=== PATIENT | male | born 1965 | race Caucasian/White ===

== ENCOUNTER 2022-10-31 06:58 | Emergency (ER) | payer BC ==
--- NOTE | 2022-10-31 07:34 | ED Physician Documentation ---
PD HPI ABD PAIN - Stated complaint Stated Complaint: SOA,LT SIDE PX - Chief complaint Chief Complaint: Abd Pain - History obtained from History obtained from: Patient, Family - History of Present Illness Timing - onset: Enter time (429), Today Timing - duration: Hours Timing - details: Abrupt onset, Still present, Waxing and waning Quality: Sharp, Pain Location: LUQ Radiation: Left flank Improved by: Laying still Worsened by: Moving, Breathing. No: Palpation Associated symptoms: No: Fever, Nausea, Vomiting, Hematemesis, Diarrhea, Constipation, Melena, Hematochezia, Dysuria, Hematuria, Chest pain, Dizzy, Near syncope / syncope, Loss of appetite, Weight loss Similar symptoms before: Has not had sx before Recently seen: Admitted - Additional information Additional information: 57-year-old Miguel Estrada has recently developed medical problems. He developed GI bleeding with anemia requiring transfusion and at that time had atrial fibrillation with rapid ventricular response resulting in damage to his heart. This all occurred in May of this year resulting in a 4-day hospitalization at [facility]. He has since been back to home and back to work he is on metoprolol and amiodarone as well as a medication for his stomach. This morning Miguel was in the bed when he developed a sharp left flank pain radiating across his abdomen. He states that at that time it was difficult to get a breath. The pain eventually improved somewhat. He subsequently had return of his pain with breathing and with movement. He can get his pain down to a 3-4 level if he is sitting upright and breathing shallow. He denies any vomiting denies any nausea denies any diarrhea denies blood per rectum does st ate that he is on iron and has dark stool. He has not taken his medications this morning. Review of Systems Constitutional: denies: Fever Eyes: denies: Decreased vision Nose: denies: Congestion Throat: denies: Sore throat Cardiac: denies: Chest pain / pressure, Palpitations, Pedal edema, Calf pain Respiratory: reports: Dyspnea. denies: Cough, Wheezing GI: reports: Abdominal Pain. denies: Abdominal Swelling, Nausea, Vomiting, Constipation, Diarrhea, Hematemesis : denies: Dysuria, Frequency Skin: denies: Rash Musculoskeletal: denies: Neck pain, Back pain, Extremity pain Neurologic: denies: Generalized weakness, Focal weakness, Numbness PD PAST MEDICAL HISTORY - Present Medications Home Medications: Ambulatory Orders Medication Instructions Recorded Confirmed Amox/Clav 875/125 [Augmentin] 1 each PO Q12H #20 tablet 10/31/22 HYDROcod/ACETAM 5/325 [Frontier 5/325] 1 - 2 tablet PO Q6H PRN #14 tablet 10/31/22 - Allergies Allergies/Adverse Reactions: Allergies Allergy/AdvReac Type Severity Reaction Status Date / Time No Known Drug Allergies Allergy Verified 10/31/22 07:12 - Social History Does the pt smoke?: No Smoking Status: Never smoker PD ED PE NORMAL - Vitals Vital signs reviewed: Yes (Tachycardic and hypertensive) - General General: Alert and oriented X 3, No acute distress, Well developed/nourished - HEENT HEENT: Atraumatic, PERRL, EOMI - Neck Neck: Supple, no meningeal sign, No bony TTP - Cardiac Cardiac: Other (tachy and irregularly irregular) - Respiratory Respiratory: No respiratory distress, Other (clear with shallow breaths only) - Abdomen Abdomen: Normal bowel sounds, Soft, Non tender, Non distended, No organomegaly - Back Back: No CVA TTP, No spinal TTP - Derm Derm: Normal color, Warm and dry, No rash - Extremities Extremities: No deformity, No edema - Neuro Neuro: Alert and oriented X 3, 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 Relevant findings are: Rate: Rate (enter#) (108) Rhythm: Atrial flutter [place]: LAD Intervals: Prolonged QT QRS: Poor R wave progression Ischemia: T wave inversion (inferior) Compare to prior EKG: Old EKG unavailable Computer interpretation: Agree with computer - Labs Labs: Laboratory Tests 10/31/22 10/31/22 10/31/22 07:39 07:39 07:39 WBC 14.2 H RBC 4.57 L Hgb 10.2 L Hct 36.1 L MCV 79.0 L MCH 22.3 L MCHC 28.3 L RDW 18.9 H Plt Count 336 MPV 10.2 Neut # (Auto) 12.1 H Lymph # (Auto) 0.9 L Victoria # (Auto) 1.1 H Eos # (Auto) 0.0 Baso # (Auto) 0.1 Absolute Nucleated RBC 0.00 Nucleated RBC % 0.0 PT 12.5 INR 1.1 Sodium 138 Potassium 4.5 Chloride 105 Carbon Dioxide 27 Anion Gap 6.0 BUN 15 Creatinine 1.2 Estimated GFR (MDRD) 62 L Glucose 110 H Calcium 9.2 Total Bilirubin 0.5 AST 10 ALT 10 Alkaline Phosphatase 70 Troponin I High Sens Total Protein 7.7 Albumin 3.9 Globulin 3.8 Albumin/Globulin Ratio 1.0 Lipase 20 Urine Color Urine Clarity Urine pH Ur Specific [place] Urine Protein Urine Glucose (UA) Urine Ketones Urine Occult Blood Urine Nitrite Urine Bilirubin Urine Urobilinogen Ur Leukocyte Esterase Urine RBC Urine WBC Ur Squamous Epith Cells Urine Bacteria Ur Microscopic Review Urine Culture Comments Nasal Adenovirus (PCR) Nasal B. parapertussis DNA (PCR) Nasal Coronavir 229E PCR Nasal Coronavir HKU1 PCR Nasal Coronavir NL63 PCR Nasal Coronavir OC43 PCR Nasal Enterovir/Rhinovir PCR Nasal Influenza B PCR Nasal Influenza A PCR Nasal Parainfluen 1 PCR Nasal Parainfluen 2 PCR Nasal Parainfluen 3 PCR Nasal Parainfluen 4 PCR Nasal RSV (PCR) Nasal B.pertussis DNA PCR Nasal C.pneumoniae (PCR) Leonardo Human Metapneumo PCR Nasal M.pneumoniae (PCR) Nasal SARS-CoV-2 (PCR) 10/31/22 10/31/22 10/31/22 07:39 07:52 08:45 WBC RBC Hgb Hct MCV MCH MCHC RDW Plt Count MPV Neut # (Auto) Lymph # (Auto) Victoria # (Auto) Eos # (Auto) Baso # (Auto) Absolute Nucleated RBC Nucleated RBC % PT INR Sodium Potassium Chloride Carbon Dioxide Anion Gap BUN Creatinine Estimated GFR (MDRD) Glucose Calcium Total Bilirubin AST ALT Alkaline Phosphatase Troponin I High Sens 3.5 Total Protein Albumin Globulin Albumin/Globulin Ratio Lipase Urine Color YELLOW Urine Clarity CLEAR Urine pH 5.5 Ur Specific [place] 1.020 Urine Protein NEGATIVE Urine Glucose (UA) NEGATIVE Urine Ketones NEGATIVE Urine Occult Blood NEGATIVE Urine Nitrite NEGATIVE Urine Bilirubin NEGATIVE Urine Urobilinogen 0.2 (NORMAL) Ur Leukocyte Esterase TRACE H Urine RBC 0-5 Urine WBC 4-5 Ur Squamous Epith Cells FEW Squamous Urine Bacteria Rare Ur Microscopic Review INDICATED Urine Culture Comments INDICATED Nasal Adenovirus (PCR) NOT DETECTED Nasal B. parapertussis DNA (PCR) NOT DETECTED Nasal Coronavir 229E PCR NOT DETECTED Nasal Coronavir HKU1 PCR NOT DETECTED Nasal Coronavir NL63 PCR NOT DETECTED Nasal Coronavir OC43 PCR NOT DETECTED Nasal Enterovir/Rhinovir PCR NOT DETECTED Nasal Influenza B PCR NOT DETECTED Nasal Influenza A PCR NOT DETECTED Nasal Parainfluen 1 PCR NOT DETECTED Nasal Parainfluen 2 PCR NOT DETECTED Nasal Parainfluen 3 PCR NOT DETECTED Nasal Parainfluen 4 PCR NOT DETECTED Nasal RSV (PCR) NOT DETECTED Nasal B.pertussis DNA PCR NOT DETECTED Nasal C.pneumoniae (PCR) NOT DETECTED Leonardo Human Metapneumo PCR NOT DETECTED Nasal M.pneumoniae (PCR) NOT DETECTED Nasal SARS-CoV-2 (PCR) NOT DETECTED Procedures - Bedside sono Bedside sono by EMP: With use of POCUS the left kidney was imaged there is no evidence of hydronephrosis and the kidney is sonographically nontender. I attempted to use POCUS for evaluation of the inferior vena cava significant gas in the abdomen precluded any further imaging. PD Medical Decision Making - ED course Complexity details: reviewed results, re-evaluated patient, considered differential, d/w patient, d/w family Reviewed Lab Results: We reviewed a complete blood count showing an elevated white blood cell count of 14.2 hemoglobin of 10.2 and hematocrit of 36.1 platelets were normal at 336. MCV is low at 79. My interpretation of these results are the patient has some anemia likely due to chronic blood loss with a low MCV and high RDW suggesting recent recovery. This is consistent with the patient's known history of prior GI bleed with requirement of 4 units transfused blood. The patient does not appear to need blood now. His elevated white blood cell count could indicate an infection. Coupled with the picture on the x-ray of a potential infiltrate on the left base correlating with this patient's symptoms of pain on the left side with respiration this be could be consistent with pneumonia. Coagulation parameters were normal. Imaging shows a large hiatal hernia with the entire contents of the stomach in the chest and surrounding inflammation. I became concerned about the possibility of paraesophageal hernia and asked for additional help from our surgeon Dr. Pierce for evaluation of the patient. Departure - Departure Disposition: 01 Home, Self Care Clinical Impression: Pleurisy with effusion Pneumonia Qualifiers: Pneumonia type: due to unspecified organism Laterality: left Lung location: lower lobe of lung Qualified Code(s): J18.9 - Pneumonia, unspecified organism Condition: Stable Instructions: ED Pneumonia Adult, ED Effusion Pleural, ED Chest Pain Pleurisy Follow-Up: MAURI COLBERT DO [Primary Care Provider] - Prescriptions: Amox/Clav 875/125 [Augmentin] 1 each PO Q12H #20 tablet HYDROcod/ACETAM 5/325 [Frontier 5/325] 1 - 2 tablet PO Q6H PRN #14 tablet PRN Reason: Pain Comments: Miguel, today it looks like you have a patch of pneumonia in your left lower lung that is causing some inflammation against your chest wall on the left side. We have given you a dose of dexamethasone today which should help a lot with the pain associated with this. This will last about 2 days. You may need pain medication for control of your symptoms and I have E scribed some pain medication and antibiotic to the [facility] in [place]. Our expectation with treatment is to have improvement in your pain and breathing. We recommend that you talk to Kaity Colbert about a referral for follow-up endoscopy. This should be done to ensure that you have resolution of your ulcer so that we can consider placing you on a blood thinner.
[2022-10-31 07:48] LABS: BASOPHILS # (AUTO) 0.1 10^3/uL (0.0-0.1); BASOPHILS % (AUTO) 0.4 %; EOSINOPHILS % (AUTO) 0.1 %; HCT - HEMATOCRIT 36.1 % (42.0-52.0); HGB - HEMOGLOBIN 10.2 g/dL (14.0-18.0); LYMPHOCYTES # (AUTO) 0.9 10^3/uL (1.5-3.5); LYMPHOCYTES % (AUTO) 6.4 %; MEAN CORPUSCULAR HEMOGLOBIN 22.3 pg (27.0-31.0); MEAN CORPUSCULAR HGB CONC 28.3 g/dL (32.0-36.0); MEAN PLATELET VOLUME 10.2 fL (7.4-11.4); MONOCYTES # (AUTO) 1.1 10^3/uL (0.0-1.0); MONOCYTES % (AUTO) 7.9 %; NEUTROPHILS # (AUTO) 12.1 10^3/uL (1.5-6.6); NEUTROPHILS % (AUTO) 84.9 %; PLT - PLATELET COUNT 336 10^3/uL (130-450); RED BLOOD COUNT 4.57 10^6/uL (4.70-6.10); RED CELL DISTRIBUTION WIDTH 18.9 % (12.0-15.0); WHITE BLOOD COUNT 14.2 x10^3/uL (4.8-10.8)
[2022-10-31] MEDS: ONDANSETRON 4 MG/2 ML VIAL IVP STA (07:51)
[2022-10-31] MEDS: HYDROmorphone 1 MG/ML CARPUJECT IVP STA ×2 (07:51→08:58)
[2022-10-31] MEDS: METOPROLOL 5 MG/5 ML VIAL IVP STA (07:52)
--- NOTE | 2022-10-31 07:59 | XRAY Report ---
PROCEDURE: Chest 1 View X-Ray INDICATIONS: chest pain TECHNIQUE: One view of the chest was acquired. COMPARISON: None. FINDINGS: Surgical changes and devices: None. Lungs and pleura: Low lung volumes. Mild bibasilar pulmonary opacities. No pleural effusion or pneum othorax. Mediastinum: Cardiac silhouette is at the upper limits of normal in size. Bones and chest wall: No suspicious bony lesions. Overlying soft tissues appear unremarkable. IMPRESSION: Low lung volumes with minimal basilar opacities probably representing atelectasis although underlying aspiration or infection would be difficult to exclude. Reviewed by: Carlos Cedeño MD on 10/31/2022 7:58 AM PDT Approved by: Carlos Cedeño MD on 10/31/2022 7:58 AM PDT Station ID: [id number]
[2022-10-31 08:00] LABS: INR 1.1 (0.8-1.2); PT - PROTHROMBIN TIME 12.5 secs (9.9-12.6)
[2022-10-31 08:06] LABS: BILIRUBIN,URINE NEGATIVE (NEGATIVE); CLARITY,URINE CLEAR (CLEAR); GLUCOSE, URINE (UA) NEGATIVE (NEGATIVE); KETONES,URINE (UA) NEGATIVE (NEGATIVE); LEUKOCYTE ESTERASE, URINE TRACE (NEGATIVE); NITRITE,URINE NEGATIVE (NEGATIVE); OCCULT BLOOD,URINE NEGATIVE (NEGATIVE); PH,URINE 5.5 PH (5.0-7.5); PROTEIN,URINE NEGATIVE (NEGATIVE); UROBILINOGEN,URINE 0.2 (NORMAL) E.U./dL (NORMAL)
[2022-10-31 08:11] VITALS: BP 149/99; O2SAT 98
[2022-10-31 08:16] LABS: BACTERIA,URINE Rare /HPF (None Seen); RBC,URINE 0-5 /HPF (0-5); SQUAMOUS EPITHELIAL CELL,UR FEW Squamous (<= Few)
[2022-10-31 08:19] LABS: ALBUMIN 3.9 g/dL (3.2-5.5); BILIRUBIN,TOTAL 0.5 mg/dL (0.2-1.0); CALCIUM 9.2 mg/dL (8.5-10.3); CREATININE 1.2 mg/dL (0.6-1.3); POTASSIUM 4.5 mmol/L (3.5-4.5); TOTAL PROTEIN 7.7 g/dL (6.4-8.9)
[2022-10-31] MEDS: DEXAMETHASONE 10 MG/ML VIAL IVP STA (08:19)
--- OUTSIDE RECORDS SUMMARY | 2022-10-31 08:34 | EXTERNAL MEDICAL SUMMARY RPT | Continuity of Care Document ---
Author Name Unknown Address [address] [place] [address] Phone Organization [facility] Address [address] [place] [address] Phone Care Team Providers Care Behavioral Health Consultant Name Role Phone Unavailable Unavailable Unavailable Weeks, Melodie Unavailable Unavailable Problems date description facility 2022-08-05 07:34 Iron deficiency anemia, [facility] 2022-10-14 08:01 Iron deficiency anemia, [facility] 2022-10-14 08:01 Unspecified atrial flutter [facility] 2022-10-14 08:01 Duodenitis without bleeding [facility] Results/Labs test date facility value unit notes Social History date description facility 2022-08-09 00:00 Never smoked tobacco ([facility] Vital Signs date measurement value units 2022-08-09 00:00 BMI 33.9 kg/m2 2022-08-09 00:00 BP_diastolic 80 mmHg 2022-08-09 00:00 BP_systolic 118 mmHg 2022-08-09 00:00 heart_rate 98 /min 2022-08-09 00:00 height_metric 187.96 cm 2022-08-09 00:00 height_standard 74 in 2022-08-09 00:00 o2_saturation 99 % 2022-08-09 00:00 temperature_metric 35.89 C 2022-08-09 00:00 temperature_standard 96.6 F 2022-08-09 00:00 weight_metric 119.8 kg 2022-08-09 00:00 weight_standard 264.11 lb
[2022-10-31] MEDS: IOVERSOL 320 100 ML VIAL IVP ONE (08:55)
[2022-10-31] MEDS ORDERED: HYDROmorphone 1 MG/ML CARPUJECT ONE (09:02)
[2022-10-31 09:58] LABS: CORONAVIRUS 229E-RESP PCR NOT DETECTED; CORONAVIRUS HKU1-RESP PCR NOT DETECTED; CORONAVIRUS NL63-RESP PCR NOT DETECTED; CORONAVIRUS OC43-RESP PCR NOT DETECTED; HUMAN METAPNEUMOVIRUS NOT DETECTED; INFLUENZA A- RESP PCR PANEL NOT DETECTED; RHINOVIRUS/ENTEROVIRUS NOT DETECTED; SARS-CoV-2 -RESP PCR PANEL NOT DETECTED
[2022-10-31 09:59] LABS: B. PARAPERTUSSIS- RESP PCR PAN NOT DETECTED; B. PERTUSSIS- RESP PCR PANEL NOT DETECTED; C. PNEUMONIAE- RESP PCR PANEL NOT DETECTED; INFLUENZA B - RESP PCR PANEL NOT DETECTED; M. PNEUMONIAE- RESP PCR PANEL NOT DETECTED; PARAINFLUENZA VIRUS 1 NOT DETECTED; PARAINFLUENZA VIRUS 2 NOT DETECTED; PARAINFLUENZA VIRUS 3 NOT DETECTED; PARAINFLUENZA VIRUS 4 NOT DETECTED; RSV- RESP PCR PANEL NOT DETECTED
--- NOTE | 2022-10-31 10:12 | CT Report ---
PROCEDURE: CT chest with contrast INDICATIONS: L sided chest pain with inspiration CONTRAST: 100ml Optiray 320 TECHNIQUE: After the administration of intravenous contrast, 1 mm axial images were acquired from the pulmonary apices through the posterior costophrenic angles. Axial 5 mm soft tissue kernel reconstructions were performed as well as 8 mm axial MIP and coronal and sagittal 5 mm reformations. For radiation dose reduction, the following was used: automated exposure control, adjustment of mA and/or kV according to patient size. COMPARISON: None. FINDINGS: Image quality: Excellent. Lungs and pleura: No consolidation. Moderate left pleural effusion associated compressive atelectasis and/or infiltrate No suspicious pulmonary nodules which require follow up. Mediastinum: Heart size is normal. No pericardial effusion. No large vessel abnormality. Large hiatal hernia contains the entire stomach in the left pleura. Chest wall and lower neck: Thyroid is unremarkable. No axillary or supraclavicular adenopathy by size . Bones: No aggressive osseous abnormality. Upper Abdomen: Unremarkable. IMPRESSION: 1. Left-sided large hiatal hernia contains the entire stomach and is associated with left-sided moder ate pleural effusion Reviewed by: Pranav Billingsley MD on 10/31/2022 9:10 AM JULI Approved by: Pranav Billingsley MD on 10/31/2022 9:10 AM [id number] Station ID: [id number]
--- NOTE | 2022-10-31 10:18 | CT Report ---
PROCEDURE: CT abdomen and pelvis with contrast INDICATIONS: LUQ pain worse with inspiration TECHNIQUE: Helical axial CT of the abdomen and pelvis was obtained after intravenous contrast adminis tration and reformatted in multiple planes. Radiation dose reduction was achieved using automated exp osure control or adjustment of mA and/or kV according to patient size. COMPARISON: None FINDINGS: Liver: Normal in size and attenuation. No contour deformity present. Biliary system: No calcified cholelithiasis or pericholecystic inflammation. No evidence of bile du ct dilatation. Pancreas: Unremarkable without mass or inflammation evident. Spleen: Normal in size and density. Adrenals: Normal morphology and density. Reproductive system: Unremarkable as visualized. Urinary system: Normal renal size and attenuation. No renal calculi, hydronephrosis, or solid mass p resent. Urinary bladder unremarkable. Gastrointestinal system: The bowel appears unremarkable with no evidence of bowel obstruction or inf lammation. The stomach appears unremarkable. Large hiatal hernia contains the entire stomach. No obs truction. Multiple diverticula arise from the left colon Appendix: No findings to suggest acute appendicitis. Peritoneal spaces: No mesenteric or retroperitoneal adenopathy. No free air. No free fluid. Vasculature: The IVC, aorta and iliac vasculature are unremarkable. Abdominal wall: Left inguinal hernia contains fat without bowel involvement Musculoskeletal: Normal bone mineralization. No acute fractures. IMPRESSION: 1. Large left-sided hiatal hernia contains the entire stomach without bowel obstruction. 2. Sigmoid diverticulosis without diverticulitis. Large left inguinal hernia contains fat without bow el involvement. Reviewed by: Pranav Billingsley MD on 10/31/2022 9:17 AM JULI Approved by: Pranav Billingsley MD on 10/31/2022 9:17 AM [email or web address] Station ID: [id number]
[2022-10-31] MEDS: cefTRIAXone 1 GM in SODIUM CHLORIDE 0.9% MINIBAG 100 ML IV STA (10:33)
--- NOTE | 2022-10-31 11:13 | CONSULTATION NOTE ---
Surgery Consult - Consult Date Consult Date: 10/31/22 - Chief Complaint Chief Complaint: Left chest and upper abdominal pain - Home Meds/Allergies Allergies/Adverse Reactions: Allergies Allergy/AdvReac Type Severity Reaction Status Date / Time No Known Drug Allergies Allergy Verified 10/31/22 07:12 - Vital Signs Vital Signs: Last Vital Signs Temp 99.3 F 10/31/22 07:08 Pulse 110 H 10/31/22 08:02 Resp 22 10/31/22 08:02 BP 149/99 H 10/31/22 08:02 Pulse Ox 98 10/31/22 08:02 O2 Flow Rate - Lab Results Result Diagrams: 10/31/22 07:39 10/31/22 07:39 - Consultation Note Consultation Note: General Surgery Consultation Note Assessment: 1) Left pleuritic pain with associated CT evidence of a left pleural effusion and inflammation/infection of lateral basal segment of the left lower lobe. 2) Possible left paraspinous and intercostal muscle spasm related to # 1 3) Sliding hiatal hernia with intra-thoracic stomach without evidence of obstruction, torsion, or ischemia; Although this anatomic abnormality places him at risk for acute incarceration or torsion, there is no clinical or CT evidence that this is present today. 4) History of PUD with acute blood loss 5) History of GERD currently well controlled with PPI 6) Atrial fibrillation on no anticoagulation 7) Asymptomatic fat containing LIH Recommendation: 1) Treat pulmonary inflammation/infection with antibiotics 2) Consider Flexeril or Methocarbamol for treatment of muscle spasm 3) Continue Pantoprazole for management of chronic GERD 4) Patient should be referred to a Surgical Service that specializes in the management of gastroesophageal reflux disease for endoscopic evaluation to: a) Determine if his gastric ulcer has healed so that anticoagulation therapy for his chronic atrial fibrillation may be started b) Discuss prophylactic surgical repair of his chronic hiatal hernia with intra-thoracic stomach. 5) Return to the ED if he develops nausea, vomiting or worsening chest/ abdominal pain <><><><><><><><><><> Reason for Consultation Intra-thoracic stomach on CT scan Chief Complaint Left back and LUQ discomfort ROJAS Rivera is a 57 year old male who was awakened at 0400 this morning with the sudden onset of left back discomfort that gradually radiated around to the left upper abdomen below the ribs. The discomfort was made worse with each breath. Sitting seems to make the discomfort worse. He denies nausea, vomiting, fevers or chills. He ate normally yesterday. He denies the recent use of NSAIDs, does not smoke, and has not engaged in any type of activity to cause posterior thoracic or abdominal muscle pain. Miguel's discomfort was treated with some success in the ED with IV Decadron. Miguel has a long history of GERD symptoms (nocturnal reflux) recently well treated with antacid agents. In May 2022, he was found to be anemic and EGD/CS at another institution identified an NSAID related gastric ulcer as well as a sliding hiatal hernia (per patient history). He was started on a PPI and has been asymptomatic since that time. He was also found to have atrial fibrillation but was not started on anticoagulation due to the ulcer. Past Medical History Atrial fibrillation Past Surgical History None Social History [place] not smoke or drink; [place] Current Medications See "Medication" section Allergies See "Allergy" section ROS Pertinent positives Left flank discomfort with deep breath All other reviewed systems negative Physical Examination Vital Signs: See "Vital Signs" section BMI: 33 GENERAL APPEARANCE: Normal development, normal body habitus, normal grooming PSYCHIATRIC: AAO; Comfortable; In NAD; No GI complaints EYES: Pupils equal, round and reactive to light, sclera anicteric; Pupils 1-2 mm and reactive EARS, NOSE, MOUTH, THROAT: Hearing normal, Oral mucous membranes moist and without lesions; NECK: No crepitus, lymphadenopathy, or thyromegaly LUNGS: Clear to auscultation without wheezing; No use of accessory muscles to breathe; Minimal pleuritic discomfort during my encounter CARDIOVASCULAR: Heart-Irreg irreg rhythm; Palpable carotid arteries - no bruits; Femoral, Pedal pulses palpable; Peripheral edema absent ABD: Soft, non-distended; active BS; Mild tenderness just below left ribs on superficial palpation BACK: Mild tenderness left paraspinous muscles LYMPHATIC: Neck, Axillae, Groin no palpable adenopathy; Asymptomatic LIH EXTREMITIES: No clubbing, cyanosis, infections SKIN: Anicteric; No rashes, lesions, Ulcerations Imaging CT Chest/Abdomen/Pelvis - Intra-thoracic stomach without evidence of torsion, ischemia, or obstruction. Hiatal defect widely patent (71.8 mm on coronal view; 50.6 mm on sagittal view); Air bronchograms left lower lobe posterior segment (PA [id number]; Series 2)) All images were personally reviewed by me for this encounter. Ariel Newman MD, LOCATED WITHIN [facility] General Surgery Service [phone]
[2022-10-31] MEDS: AMIODARONE 200 MG TABLET PO STA (11:34)
== END 2022-10-31 12:16 | disposition home or self-care (01) ==
LOC: ED 06:58
DX: J18.9 Pneumonia, unspecified organism (principal); J90 Pleural effusion, not elsewhere classified; K21.9 Gastro-esophageal reflux disease without esophagitis; I48.91 Unspecified atrial fibrillation; K44.9 Diaphragmatic hernia without obstruction or gangrene; Z20.822 Contact with and (suspected) exposure to COVID-19
CPT/HCPCS: 36415; 80053; 81001; 81003; 83690; 84484; 85025; 85610; 86850; 86900; 86901; 87086; 87633; 93005; 96365; 96375; 96376; 99284

== ENCOUNTER 2022-11-04 11:29 | Outpatient (CLI) | payer BC | END 2022-11-04 11:30 | disposition short-term general hospital (02) | LOC: EMS 11:29 | DX: R06.02 Shortness of breath (principal); R07.9 Chest pain, unspecified; R61 Generalized hyperhidrosis; I48.91 Unspecified atrial fibrillation; R05.9 Cough, unspecified | CPT/HCPCS: A0425; A0427 ==